=== PATIENT | female | born 1980 | race American Indian/Alaskan Native ===

== ENCOUNTER 2021-07-27 14:43 | Emergency (ER) | payer MEDICAID ==
[2021-07-27] MEDS ORDERED: predniSONE 20 MG TAB PO ONE (15:22)
--- NOTE | 2021-07-27 15:55 | XRay Report ---
CHEST 2 VIEWS INDICATION / CLINICAL INFORMATION: cough. COMPARISON: None available. FINDINGS: SUPPORT DEVICES: None. HEART / MEDIASTINUM: No significant abnormality. LUNGS / PLEURA: No significant pulmonary or pleural abnormality. No pneumothorax. ADDITIONAL FINDINGS: No significant additional findings. IMPRESSION: 1. No acute findings. Signer Name: Rodney Atkinson MD Signed: 07/27/2021 3:50 PM Workstation Name: [id number]
--- NOTE | 2021-07-27 16:55 | Emergency Department Report ---
ED Shortness of Breath HPI - General Chief Complaint: Dyspnea/Respdistress Stated Complaint: CP/SOB Time Seen by Provider: 07/27/21 15:08 Source: patient Mode of arrival: Ambulatory Limitations: No Limitations - History of Present Illness Initial Comments: 41-year-old female, history of asthma, presents to ED with shortness of breath. Patient reports onset of cough, body aches, headache last night. She reports chest pain with cough. She reports some associated wheezing as well. Patient states she used her inhaler and nebulizer machine at home. She denies any fever, loss of smell or taste vomiting or diarrhea. Patient states her daughter been experiencing similar symptoms. She has not received the COVID-19 vaccine. MD Complaint: shortness of breath -: This morning Severity: mild Consistency: intermittent Improves With: bronchodilators Worsens With: exertion Known History Of: asthma Associated Symptoms: chest pain (With cough), cough Treatments Prior to Arrival: bronchodilator - Related Data Previous Rx's Medication Instructions Recorded Last Taken Type Albuterol Sulfate [Proventil Hfa] 2 puff IH Q4HR PRN #1 hfa.aer.ad 07/27/21 Unknown Rx Benzonatate [Tessalon Perles] 100 mg PO Q8HR PRN #20 capsule 07/27/21 Unknown Rx predniSONE [Deltasone] 50 mg PO QDAY #5 tab 07/27/21 Unknown Rx Allergies Allergy/AdvReac Type Severity Reaction Status Date / Time No Known Allergies Allergy Unverified 07/27/21 15:05 ED Review of Systems ROS: Stated complaint: CP/SOB Other details as noted in HPI Comment: All other systems reviewed and negative Constitutional: denies: fever Respiratory: cough, shortness of breath, wheezing Cardiovascular: chest pain (With cough) Gastrointestinal: denies: vomiting, diarrhea Musculoskeletal: myalgia Neurological: headache ED Past Medical Hx - Past Medical History Previous Medical History?: Yes Hx Asthma: Yes Additional medical history: Bronchitis - Surgical History Past Surgical History?: Yes - Social History Smoking Status: Current Every Day Smoker Substance Use Type: Alcohol - Medications Home Medications: Home Medications Medication Instructions Recorded Confirmed Last Taken Type Albuterol Sulfate [Proventil Hfa] 2 puff IH Q4HR PRN #1 hfa.aer.ad 07/27/21 Unknown Rx Benzonatate [Tessalon Perles] 100 mg PO Q8HR PRN #20 capsule 07/27/21 Unknown Rx predniSONE [Deltasone] 50 mg PO QDAY #5 tab 07/27/21 Unknown Rx ED Physical Exam - General Limitations: No Limitations General appearance: alert, in no apparent distress - Head Head exam: Present: atraumatic, normocephalic - Eye Eye exam: Present: normal appearance, EOMI - ENT ENT exam: Present: mucous membranes moist - Neck Neck exam: Present: normal inspection - Respiratory Respiratory exam: Present: wheezes (Scant). Absent: respiratory distress - Cardiovascular Cardiovascular Exam: Present: regular rate, normal rhythm - GI/Abdominal GI/Abdominal exam: Present: soft. Absent: distended, tenderness - Extremities Exam Extremities exam: Present: normal inspection. Absent: pedal edema, calf tenderness - Neurological Exam Neurological exam: Present: alert, oriented X3 - Psychiatric Psychiatric exam: Present: normal affect, normal mood - Skin Skin exam: Present: warm, dry, intact, normal color ED Course Vital Signs 07/27/21 07/27/21 15:00 17:08 Temperature 99.1 F Pulse Rate 98 H 100 H Respiratory 20 18 Rate Blood Pressure 128/87 Blood Pressure 133/83 [Right] O2 Sat by Pulse 97 96 Oximetry ED Medical Decision Making - Radiology Data Radiology results: report reviewed, image reviewed - Medical Decision Making Chest x-ray is normal. Patient is in no respiratory distress. O2 sats are normal. Patient has nebulizer machine and meds at home. Will add prednisone prescription. Patient comfortable with discharge home. Advised outpatient COVID-19 testing. - Differential Diagnosis Pneumonia, viral illness, asthma exacerbation Critical care attestation.: If time is entered above; I have spent that time in minutes in the direct care of this critically ill patient, excluding procedure time. ED Disposition Clinical Impression: URI (upper respiratory infection) Disposition: HOME / SELF CARE / HOMELESS Is pt being admited?: No Condition: Stable Additional Instructions: Your oxygen level is normal today. Your chest x-ray appears normal. Please obtain outpatient COVID-19 testing and quarantine as necessary. Return to the ER if your symptoms worsen. Prescriptions: predniSONE [Deltasone] 50 mg PO QDAY #5 tab Albuterol Sulfate [Proventil Hfa] 2 puff IH Q4HR PRN #1 hfa.aer.ad PRN Reason: Wheezing Benzonatate [Tessalon Perles] 100 mg PO Q8HR PRN #20 capsule PRN Reason: Cough Referrals: PRIMARY CARE, [Primary Care Provider] - 3-5 Days [facility] [Provider Group] - 3-5 Days Time of Disposition: 16:55
[2021-07-27 17:10] VITALS: BP 133/83
== END 2021-07-27 17:22 | disposition home or self-care (01) ==
LOC: ED 14:43
DX: J06.9 Acute upper respiratory infection, unspecified (principal); J45.909 Unspecified asthma, uncomplicated; F17.200 Nicotine dependence, unspecified, uncomplicated; Z72.89 Other problems related to lifestyle; Z79.899 Other long term (current) drug therapy
CPT/HCPCS: 71046; 99283; J7512